=== PATIENT | female | born 1945 | race Caucasian/White ===

== ENCOUNTER 2016-06-27 13:54 | Emergency (ER) | payer MEDICARE, OTHER ==
--- NOTE | 2016-06-27 14:45 | DIAGNOSTIC IMAGING REPORT ---
PROCEDURE: CT HEAD WITHOUT CONTRAST INDICATION: WEAKNESS TECHNIQUE: Noncontrast axial images with sagittal and coronal reformations. COMPARISON: None. FINDINGS: Sulci and ventricular system are normal. Mild of white matter chronic ischemic changes and tiny bilateral basal ganglia lacunar infarcts versus prominent perivascular spaces. No evidence of acute intracranial process. Visualized mastoids and sinuses are clear. IMPRESSION: 1. No acute intracranial abnormality 2. Mild white matter chronic ischemic changes with tiny bilateral basal ganglia lacunar infarct versus prominent perivascular spaces 3. Findings discussed with Dr. Gutiérrez at 02:43 p.m.[facility] Standard Time
--- NOTE | 2016-06-27 15:23 | DIAGNOSTIC IMAGING REPORT ---
PROCEDURE: XR CERVICAL SPINE 2 OR 3 VIEW INDICATION: UPPER EXTREMITY WEAKNESS TECHNIQUE: Three views. COMPARISON: None. FINDINGS: Normal alignment without fracture. Anterior C6-7 surgical fusion with complete bony fusion. Large spurs at C4-5 and C5-6. Osteopenia. Odontoid , lateral masses of C1 prevertebral soft tissues are normal. Soft tissue calcification between the C6 and C7 spinous processes suggestive of old soft tissue injury. IMPRESSION: 1. No acute changes 2. C6-7 surgical fusion 3. Degenerative changes
--- NOTE | 2016-06-27 15:24 | DIAGNOSTIC IMAGING REPORT ---
PROCEDURE: XR CHEST 1 VIEW INDICATION: R ARM WEAKNESS TECHNIQUE: Portable AP view 02:54 p.m. COMPARISON: None. FINDINGS: Lungs are clear. Heart and mediastinum are normal. Lower cervical spine surgical fusion. IMPRESSION: 1. No acute changes.
--- NOTE | 2016-06-27 17:31 | ED ORDER SUMMARY ---
..... Patient: JORGE KEARNS OrderSheet [facility] VisitID: [id number] [address] [place] [address] 71y, F Registration Date/Time: 06/27/2016 ORDER SHEET Weight: 70.3 kg (stated) Allergies: Ciprofloxacin, Metformin, NIFEdipine, Sulfa Antibiotics, Timolol GENERAL ORDERS: Chest 1V Urgent (14:15 06/27/2016 Josh FENTON) (Ack 14:24 LTapper) (15:35 DDean R.N.) CT Head wo Cont Urgent (14:15 06/27/2016 Josh FENTON) (Ack 14:24 LTapper) (15:35 DDean R.N.) Contact Center Specialist (Continuous) (14:16 06/27/2016 Josh FENTON) (14:22 DDean R.N.) Cervical Spine 2 or 3V Urgent (14:16 06/27/2016 Josh FENTON) (Ack 14:24 LTapper) (15:35 DDean R.N.) CBC w Diff Urgent (14:16 06/27/2016 Josh FENTON) (Ack 14:24 LTapper) (15:59 DDean R.N.) CMP Urgent (14:16 06/27/2016 Josh FENTON) (Ack 14:24 LTapper) (15:59 DDean R.N.) UA-Culture if indicated Urgent (14:16 06/27/2016 Josh FENTON) (Ack 14:24 LTapper) (16:26 DDean R.N.) PT with INR Urgent (14:16 06/27/2016 Josh FENTON) (Ack 14:24 LTapper) (15:59 DDean R.N.) PTT Urgent (14:16 06/27/2016 Josh FENTON) (Ack 14:24 LTapper) (15:59 DDean R.N.) Amylase Urgent (14:16 06/27/2016 Josh FENTON) (Ack 14:24 LTapper) (15:59 DDean R.N.) Lipase Urgent (14:16 06/27/2016 Josh FENTON) (Ack 14:24 LTapper) (15:59 DDean R.N.) CPK Urgent (14:16 06/27/2016 Josh FENTON) (Ack 14:24 LTapper) (15:59 DDean R.N.) Troponin-I Urgent (14:16 06/27/2016 Josh FENTON) (Ack 14:24 LTapper) (15:59 DDean R.N.) Oxygen (2 L/min) (NC) (14:16 06/27/2016 Josh FENTON) (14:22 DDean R.N.) Pulse oximeter (14:16 06/27/2016 Josh FENTON) (14:22 DDean R.N.) EKG - ER Stat (14:16 06/27/2016 Josh FENTON) (Ack 14:29 LTapper) (15:28 RKaruga) MEDICATION ORDERS: Aspirin PO 325 mg (NOW) (15:59 06/27/2016 Josh FENTON) (16:07 DDean R.N.) IV FLUIDS: IV Saline Lock (14:16 06/27/2016 Josh FENTON) (14:23 DDean R.N.) ORDER SHEET NOTES: [Electronically signed by Danuta Lyn R.N. (23:06 06/27/2016)] [Electronically signed by Tito Gutiérrez MD (22:33 06/29/2016)] [Electronically locked/signed by Danuta Lyn R.N. (23:06 06/27/2016)]
--- NOTE | 2016-06-27 17:31 | ED ORDER SUMMARY ---
..... Patient: JORGE KEARNS OrderSheet [facility] VisitID: [id number] [address] [place] [address] 71y, F Registration Date/Time: 06/27/2016 ORDER SHEET Weight: 70.3 kg (stated) Allergies: Ciprofloxacin, Metformin, NIFEdipine, Sulfa Antibiotics, Timolol GENERAL ORDERS: Chest 1V Urgent (14:15 06/27/2016 Josh FENTON) (Ack 14:24 LTapper) (15:35 DDean R.N.) CT Head wo Cont Urgent (14:15 06/27/2016 Josh FENTON) (Ack 14:24 LTapper) (15:35 DDean R.N.) Biometrics Specialist (Continuous) (14:16 06/27/2016 Josh FENTON) (14:22 DDean R.N.) Cervical Spine 2 or 3V Urgent (14:16 06/27/2016 Josh FENTON) (Ack 14:24 LTapper) (15:35 DDean R.N.) CBC w Diff Urgent (14:16 06/27/2016 Josh FENTON) (Ack 14:24 LTapper) (15:59 DDean R.N.) CMP Urgent (14:16 06/27/2016 Josh FENTON) (Ack 14:24 LTapper) (15:59 DDean R.N.) UA-Culture if indicated Urgent (14:16 06/27/2016 Josh FENTON) (Ack 14:24 LTapper) (16:26 DDean R.N.) PT with INR Urgent (14:16 06/27/2016 Josh FENTON) (Ack 14:24 LTapper) (15:59 DDean R.N.) PTT Urgent (14:16 06/27/2016 Josh FENTON) (Ack 14:24 LTapper) (15:59 DDean R.N.) Amylase Urgent (14:16 06/27/2016 Josh FENTON) (Ack 14:24 LTapper) (15:59 DDean R.N.) Lipase Urgent (14:16 06/27/2016 Josh FENTON) (Ack 14:24 LTapper) (15:59 DDean R.N.) CPK Urgent (14:16 06/27/2016 Josh FENTON) (Ack 14:24 LTapper) (15:59 DDean R.N.) Troponin-I Urgent (14:16 06/27/2016 Josh FENTON) (Ack 14:24 LTapper) (15:59 DDean R.N.) Oxygen (2 L/min) (NC) (14:16 06/27/2016 Josh FENTON) (14:22 DDean R.N.) Pulse oximeter (14:16 06/27/2016 Josh FENTON) (14:22 DDean R.N.) EKG - ER Stat (14:16 06/27/2016 Josh FENTON) (Ack 14:29 LTapper) (15:28 RKaruga) MEDICATION ORDERS: Aspirin PO 325 mg (NOW) (15:59 06/27/2016 Josh FENTON) (16:07 DDean R.N.) IV FLUIDS: IV Saline Lock (14:16 06/27/2016 Josh FENTON) (14:23 DDean R.N.) ORDER SHEET NOTES: [Electronically signed by Danuta Lyn R.N. (23:06 06/27/2016)] [Electronically signed by Tito Gutiérrez MD (22:33 06/29/2016)] [Electronically locked/signed by Danuta Lyn R.N. (23:06 06/27/2016)]
--- NOTE | 2016-06-27 17:31 | ED NURSING NOTES ---
Clinical Report - Nurses [facility] [address] [place] [address] 06/27/2016 13:57 Patient: JORGE KEARNS TRIAGE Triage time 1400. Acuity: LEVEL 3. Chief Complaint: NUMBNESS and (numbness and heaviness on rt arm from elbow down. has had multiple TIA's since February. there is right arm drift and weakness, but she states she has "had trouble with that arm since february"). JAVIER COMA SCORE: Bouse Coma Scale: 15- eyes open spontaneously (4); best verbal response- oriented x 4 (5); best motor response- obeys commands (6). --14:18 Danuta Lyn R.N. 14:00 06/27/16. BP: 131/80. HR: 74. RR: 20. O2 saturation: 98% on room air. Temp: 98.3 F. Pain level now: 0/10. --14:18 Danuta Lyn R.N. Weight: 70.3 kg stated. Height/Length: 66 inches Per Patient. BMI: 25. --14:06 Danuta Lyn R.N. Medications Nystatin 975428gjyui/gm powder BID . --14:41 Danuta Lyn R.N. Calcium + D Oral 1 daily. Carvedilol Oral (Tablet 12.5 mg) 1 tablet, BID. Clopidogrel Bisulfate Oral 75 mg, daily. Gabapentin Oral 300 mg, 2 in am, 1 in afternoon, 2 at HS . HydrALAZINE HCl Oral (Tablet 25 mg) 1 tablet, HS. Hydrochlorothiazide Oral 25 mg, daily. Lantus SoloStar Subcutaneous 45 units daily . Lipitor Oral 20 mg, daily. Losartan Potassium Oral 100 mg, daily. Multivitamin Oral 1 tab daily . OxyCODONE HCl Oral 5 mg, 4x a day as needed. PARoxetine HCl Oral (Tablet 40 mg) 1 tablet, daily. Potassimin Oral 10mEq 1 daily . Tolterodine Tartrate ER Oral 4mg tab daily . --14:43 Danuta Lyn R.N. Allergies Ciprofloxacin. (N/V) Metformin. NIFEdipine. Sulfa Antibiotics. (GI upset) Timolol. --14:35 Danuta Lyn R.N. History Arrived by EMS. Historian: patient. Unaccompanied. Primary physician (richy griffin). This started 2229 last night. No alteration in mental status, headache, impaired speech or trouble walking or swallowing. No dizziness. PAST MEDICAL HX: Diabetes mellitus. Hypertension. SURGERY HX: Back surgery. (had cement placed around L1 "so it wouldnt rub against the others"). Neck surgery. (cervical surgery 2 years). SOCIAL HX: Occasional alcohol use. --14:18 Danuta Lyn R.N. PROBLEMS: Right leg droop . --14:16 Danuta Lyn R.N. TIA - Transient Ischemic Attack [RuleOut]. --17:29 Tito Gutiérrez MD The following entry was modified by Tito Gutiérrez MD, 17:29 <<STRICKEN ENTRY-- TIA - Transient Ischemic Attack. --14:15 Danuta Lyn R.N. --END STRIKE>>. ADDITIONAL SURGERIES: Hysterectomy. Right elbow growth . --14:16 Danuta Lyn R.N. Interventions ID band on patient. To treatment room. --14:18 Danuta Lyn R.N. PHYSICAL ASSESSMENT 14:00. To room via stretcher. Patient gowned. GENERAL / NEURO / PSYCH: Awake. Oriented X 4. Alert. Appears in no acute distress. Bouse Coma Scale: 15- eyes open spontaneously (4); best verbal response- oriented x 4 (5); best motor response- obeys commands (6). Speech normal. Mood/affect normal. Strength is unequal; left employee communications specialist is greater than the right employee communications specialist and left foot push/pull is greater than the right foot push/pull. The patient has had weakness. Sensory deficit present. (c/o rt arm numbness from elbow down). HEENT: No facial asymmetry noted. RESPIRATORY: Respirations not labored. CVS: Capillary refill less than 2 seconds. SKIN: Skin is warm and dry. --14:21 Danuta Lyn R.N. NURSING PROGRESS NOTES 14:00. campus monitor placed on patient; (NSR). Patient gowned. Head of bed elevated. Reassurance given. Patient identifiers checked. Call light placed in reach. Side rails up. Bed placed in lowest position. Patient ready for evaluation- chart flagged. --14:19 Danuta Lyn R.N. 13:40 06/27/2016 Site #1 started prior to arrival by EMS via IV in the left hand with an 20g angiocath, with aseptic technique and good blood return; one attempt. --14:23 Danuta Lyn R.N. 14:27 06/27/16. Patient transported to CT by stretcher with tech. --14:27 Danuta Lyn R.N. 15:00. Patient returned from radiology and CT. --15:23 Danuta Lyn R.N. 15:00 06/27/16. BP: 118/103. HR: 79. RR: 18. O2 saturation: 99%. Temp: deferred. Pain level now: 0/10. --15:26 Danuta Lyn R.N. EKG time: (15:25). EKG was performed by a tech and shown to the ED physician. --15:27 Claudia Holden 15:25. Patient ID band checked for patient name and birthdate: patient confirmed. Blood samples drawn by lab per protocol ; labeled in presence of the patient and sent to lab: [facility]. --15:35 Danuta Lyn R.N. JAVIER COMA SCORE: Javier Coma Scale: 15- eyes open spontaneously (4); best verbal response- oriented x 4 (5); best motor response- obeys commands (6). --16:04 Danuta Lyn R.N. 16:03 06/27/16. BP: 144/83. HR: 71. RR: 18. O2 saturation: 100% on nasal cannula at 2 liters/minute. Temp: deferred. Pain level now: 0/10. --16:04 Danuta Lyn R.N. 16:05 06/27/2016 Aspirin PO Tablets 324 mg given. Allergies verified and confirmed 5 rights. --16:07 Danuta Lyn R.N. 16:15. 10 fr in/out catheterization. During procedure hand hygiene observed and sterile equipment and aseptic technique used. Return of less than 50 mL yellow-colored cloudy urine. She tolerated procedure well. --16:28 Danuta Lyn R.N. 16:45 06/27/16. BP: 140/75. HR: 75. RR: 18. O2 saturation: 100%. Temp: deferred. Pain level now: 0/10. Additional comments: Pt talking with friend, drinking sprite, pt in no acute distress. --16:58 Danuta Lyn R.N. ( Pt's food set at bedside. Diabetic diet was ordered). --17:26 Claudia Holden 17:50 06/27/16. BP: 190/74. HR: 77. RR: 18. O2 saturation: 99% on nasal cannula at 2 liters/minute. Temp: deferred. Pain level now: 0/10. --17:51 Danuta Lyn R.N. 17:48 06/27/2016 Site #1 removed upon discharge. Bandaid applied. --17:53 Danuta Lyn R.N. 17:49 06/27/2016 IV Saline Lock Drip IV Discontinued: bag #1 STOPPED upon discharge. Total amount infused: 0 mL. IV patency established. IV site checked: no pain, redness, or swelling. IV flushed thoroughly. --17:54 Danuta Lyn R.N. DISPOSITION / DISCHARGE 17:53 06/27/16. Condition at departure: unchanged and stable. No learning barriers present. Discharge instructions provided and reviewed with the patient. Reviewed medication(s) (add 325 mg ASA). Patient verbalized understanding. Written instructions provided in Hungarian. The patient was discharged home and accompanied by sterile tech. She left the Emergency Department in a wheelchair and via private vehicle. Staking Press Operator driving. JAVIER COMA SCORE: Javier Coma Scale: 15- eyes open spontaneously (4); best verbal response- oriented x 4 (5); best motor response- obeys commands (6). --17:53 Danuta Lyn R.N. 17:51 06/27/16. BP: 190/74. HR: 78. RR: 18. O2 saturation: 99% on nasal cannula at 2 liters/minute. Temp: deferred. Pain level now: 0/10. --17:53 Danuta Lyn R.N. Locked/Released at 06/27/2016 23:06 by Danuta Lyn R.N.
--- NOTE | 2016-06-27 17:31 | ED CLINICAL REPORT ---
Clinical Report - Physicians/Mid Levels [facility] [address] [place] [address] 06/27/2016 13:57 Patient: JORGE KEARNS Time Seen: 14:14. Arrived- By ambulance. Historian- patient and EMS personnel. HISTORY OF PRESENT ILLNESS Chief Complaint: WEAKNESS. The patient has had weakness of the right arm (moderate) and right hand (moderate). She has had numbness of the right arm (moderate) and right hand (moderate). She has had tingling of the right arm (moderate) and right hand (moderate). No impaired speech or swallowing or visual disturbance. She has had difficulty walking (chronically - she attributes this to prior stroke). This started last night and is still present. It was abrupt in onset and has been constant. At its maximum deficit described as moderate. When seen in the E.D., it was almost gone. No dizziness. Usually is alert and oriented X3. (she uses a RLE brace). She usually uses a wheelchair. (She says that she has had chronic problems with weakness, numbness and tingling in the right arm as well as her right leg. However, last night and this morning this felt much worse. She says that she is back to her baseline now.). Similar symptoms previously: Chronically. REVIEW OF SYSTEMS No chills, fever, sweats, calf pain or chest pain. No cough, difficulty breathing, pedal edema, palpitations or abdominal pain. No constipation, diarrhea, nausea, vomiting or urinary problems. No neck pain. All systems otherwise negative, except as recorded above. PAST HISTORY ( PCP - [facility]). Problems: Diabetes Mellitus. Hypertension. SOCIAL HISTORY Never smoker. Occasional alcohol use. No drug use. Residence: On the waiting list for an assisted living facility Is a local resident. Resides in an apartment. She lives alone. FAMILY HISTORY Cancer in first-degree relative (mother and sibling) and grandparent. ADDITIONAL NOTES The nursing notes have been reviewed. PHYSICAL EXAM Vital Signs: 06/27/2016 14:00 BP: 131/80. HR: 74. RR: 20. O2 saturation: 98%. Temp: 98.3 F. Pain level now: 0/10. Have been reviewed. Appearance: Alert. No acute distress. Eyes: Pupils equal, round and reactive to light. ENT: Normal ENT inspection. Airway intact. Pharynx normal. Neck: Normal inspection. Neck supple. No carotid bruit. CVS: Normal heart rate and rhythm. Heart sounds normal. Respiratory: No respiratory distress. Breath sounds normal. Abdomen: Soft and nontender. No organomegaly. Obese. Back: Normal inspection. Skin: Skin warm and dry. Normal skin color. No rash. Normal skin turgor. Extremities: Extremities exhibit normal ROM. No calf tenderness. No lower extremity edema. Neuro: Alert. Oriented X 3. Mood/affect normal. Speech normal. Cranial nerves normal (as tested). No cerebellar findings. No motor deficit. No sensory deficit. No pronator drift. (mild RUE tremulousness). LABS, X-RAYS, AND EKG EKG: No acute process. Rate: 72. Prior EKG unavailable. The study has been independently viewed by me. C-Spine X-rays: (IMPRESSION: 1. No acute changes 2. C6-7 surgical fusion 3. Degenerative changes). The X-rays were interpreted by the radiologist and contemporaneously by me. Chest X-ray: No acute disease. The X-rays were interpreted by the radiologist and contemporaneously by me. CT Head: (IMPRESSION: 1. No acute intracranial abnormality 2. Mild white matter chronic ischemic changes with tiny bilateral basal ganglia lacunar infarct versus prominent perivascular spaces). The study was interpreted by the radiologist and contemporaneously by me. Laboratory Tests: CBC w Diff: (MELIA: 06/27/2016 15:30) ( MsgRcvd 06/27/2016 15:43) Final results Test Result Flag Units (Reference) WHITE BLOOD COUNT 7.4 K/uL (4.5-11.5) RED BLOOD COUNT 4.53 M/uL (4.00-5.20) HEMOGLOBIN 12.6 gm/dL (12.0-16.0) HEMATOCRIT 37.7 % (36.0-46.0) MEAN CELL VOLUME 83 fL (80-100) MEAN CORPUSCULAR HGB 28 pg (26-34) MEAN CORPUSCULAR HGB CONC 34 g/dL (31-37) RED CELL DISTRIBUTION WIDTH 14.4 % (11.6-14.8) PLATELET COUNT 200 K/uL (150-400) NEUTROPHIL % 65.2 % (50-75) LYMPH % 26.3 % (25-40) MONO % 4.6 % (3-14) EOSINOPHIL % 3.5 % (0-4) BASOPHIL % 0.4 % (0-2) PT with INR: (MELIA: 06/27/2016 15:30) ( [facility] 06/27/2016 15:47) Final results Test Result Flag Units (Reference) INR 1.1 (0.8-1.2) Low Intensity Therapy: INR 1.5-2.0 PT range 18.5-23.1Mod.Intensity Therapy: INR 2.0-3.0 PT range 23.1-31.5High Intensity Therapy: INR 2.5-3.5 PT range 27.4-35.5High Intensity Therapy 2: INR 3.0-4.0 PT range 31.5-39.3 APTT 31 SECONDS (24-34) CMP: (MELIA: 06/27/2016 15:30) ( [facility] 06/27/2016 15:56) Final results Test Result Flag Units (Reference) GLUCOSE 54 L mg/dL (70-110) BUN 32 H mg/dL (7-18) CREATININE 1.4 H mg/dL (0.6-1.3) Estimated GFR 39.63 mL/min Estimated GFR- 48.03 mL/min Note: Persistent reduction over 3 months in eGFR<60 mL/min/1.73 m2 defines CKD. Patients with eGFR values>=60 mL/min/1.73 m2 may also have CKD if evidence ofpersistent proteinuria. Additional information may be foundat www.kidney.org. SODIUM 138 mmol/L (136-145) POTASSIUM 3.3 L mmol/L (3.5-5.1) CHLORIDE 103 mmol/L (98-107) CARBON DIOXIDE 27 mmol/L (21-32) CALCIUM 9.1 mg/dL (8.5-10.1) TOTAL PROTEIN 6.6 g/dL (6.4-8.2) ALBUMIN 3.2 L g/dL (3.3-5.0) BILIRUBIN, TOTAL 1.0 mg/dL (0.0-1.0) ALKALINE PHOSPHATASE 103 U/L (46-116) AST (SGOT) 17 U/L (15-37) ALT (SGPT) 26 U/L (12-78) LIPASE 69 L U/L (73-393) AMYLASE 24 L U/L (25-115) CPK 82 U/L (24-260) TROPONIN I <0.05 ng/mL (0.00-1.5) TROPONIN REFERENCE RANGE:<0.1 NEGATIVE0.1-1.5 INDETERMINANT>1.5 POSITIVE . PROGRESS AND PROCEDURES Patient/family counseled. Old medical records ordered. Old records unavailable. Disposition: Discharged. Condition: stable. CLINICAL IMPRESSION Paresthesia Possible transient ischemic attack. INSTRUCTIONS Warnings: Further evaluation is necessary. GENERAL WARNINGS: Return or contact your physician immediately if your condition worsens or changes unexpectedly, if not improving as expected, or if other problems arise. Your Current Medications: CONTINUE TAKING THE FOLLOWING MEDICATIONS: Calcium + D Oral : 1 daily. Carvedilol Oral : Tablet 12.5 mg, 1 tablet BID. Clopidogrel Bisulfate Oral : 75 mg daily. Gabapentin Oral : 300 mg 2 in am, 1 in afternoon, 2 at HS. HydrALAZINE HCl Oral : Tablet 25 mg, 1 tablet HS. Hydrochlorothiazide Oral : 25 mg daily. Lantus SoloStar Subcutaneous : 45 units daily. Lipitor Oral : 20 mg daily. Losartan Potassium Oral : 100 mg daily. Multivitamin Oral : 1 tab daily. Nystatin [id number]/gm powder BID *. OxyCODONE HCl Oral : 5 mg 4x a day, prn. PARoxetine HCl Oral : Tablet 40 mg, 1 tablet daily. Potassimin Oral : 10mEq 1 daily. Tolterodine Tartrate ER Oral : 4mg tab daily. OTC Medications: Aspirin 325 mg (available over the counter): take 1 orally every 24 hours. Dispense thirty (30). No refills. Follow-up: Follow up with your doctor Thursday in three days. Call for an appointment. Follow up with a neurologist- as recommended by your primary care physician. Understanding of the discharge instructions verbalized by patient. (Electronically signed by Tito Gutiérrez MD 06/29/2016 22:33)
--- NOTE | 2016-06-27 17:31 | ED NURSING NOTES ---
Clinical Report - Nurses [facility] [address] [place] [address] 06/27/2016 13:57 Patient: JORGE KEARNS TRIAGE Triage time 1400. Acuity: LEVEL 3. Chief Complaint: NUMBNESS and (numbness and heaviness on rt arm from elbow down. has had multiple TIA's since February. there is right arm drift and weakness, but she states she has "had trouble with that arm since february"). JAVIER COMA SCORE: [place] Coma Scale: 15- eyes open spontaneously (4); best verbal response- oriented x 4 (5); best motor response- obeys commands (6). --14:18 Danuta Lyn R.N. 14:00 06/27/16. BP: 131/80. HR: 74. RR: 20. O2 saturation: 98% on room air. Temp: 98.3 F. Pain level now: 0/10. --14:18 Danuta Lyn R.N. Weight: 70.3 kg stated. Height/Length: 66 inches Per Patient. BMI: 25. --14:06 Danuta Lyn R.N. Medications Nystatin [id number]/gm powder BID . --14:41 Danuta Lyn R.N. Calcium + D Oral 1 daily. Carvedilol Oral (Tablet 12.5 mg) 1 tablet, BID. Clopidogrel Bisulfate Oral 75 mg, daily. Gabapentin Oral 300 mg, 2 in am, 1 in afternoon, 2 at HS . HydrALAZINE HCl Oral (Tablet 25 mg) 1 tablet, HS. Hydrochlorothiazide Oral 25 mg, daily. Lantus SoloStar Subcutaneous 45 units daily . Lipitor Oral 20 mg, daily. Losartan Potassium Oral 100 mg, daily. Multivitamin Oral 1 tab daily . OxyCODONE HCl Oral 5 mg, 4x a day as needed. PARoxetine HCl Oral (Tablet 40 mg) 1 tablet, daily. Potassimin Oral 10mEq 1 daily . Tolterodine Tartrate ER Oral 4mg tab daily . --14:43 Danuta Lyn R.N. Allergies Ciprofloxacin. (N/V) Metformin. NIFEdipine. Sulfa Antibiotics. (GI upset) Timolol. --14:35 Danuta Lyn R.N. History Arrived by EMS. Historian: patient. Unaccompanied. Primary physician (richy griffin). This started 2229 last night. No alteration in mental status, headache, impaired speech or trouble walking or swallowing. No dizziness. PAST MEDICAL HX: Diabetes mellitus. Hypertension. SURGERY HX: Back surgery. (had cement placed around L1 "so it wouldnt rub against the others"). Neck surgery. (cervical surgery 2 years). SOCIAL HX: Occasional alcohol use. --14:18 Danuta Lyn R.N. PROBLEMS: Right leg droop . --14:16 Danuta Lyn R.N. TIA - Transient Ischemic Attack [RuleOut]. --17:29 Tito Gutiérrez MD The following entry was modified by Tito Gutiérrez MD, 17:29 <<STRICKEN ENTRY-- TIA - Transient Ischemic Attack. --14:15 Danuta Lyn R.N. --END STRIKE>>. ADDITIONAL SURGERIES: Hysterectomy. Right elbow growth . --14:16 Danuta Lyn R.N. Interventions ID band on patient. To treatment room. --14:18 Danuta Lyn R.N. PHYSICAL ASSESSMENT 14:00. To room via stretcher. Patient gowned. GENERAL / NEURO / PSYCH: Awake. Oriented X 4. Alert. Appears in no acute distress. [place] Coma Scale: 15- eyes open spontaneously (4); best verbal response- oriented x 4 (5); best motor response- obeys commands (6). Speech normal. Mood/affect normal. Strength is unequal; left supervisor scrap preparation is greater than the right supervisor scrap preparation and left foot push/pull is greater than the right foot push/pull. The patient has had weakness. Sensory deficit present. (c/o rt arm numbness from elbow down). HEENT: No facial asymmetry noted. RESPIRATORY: Respirations not labored. CVS: Capillary refill less than 2 seconds. SKIN: Skin is warm and dry. --14:21 Danuta Lyn R.N. NURSING PROGRESS NOTES 14:00. fixture designer placed on patient; (NSR). Patient gowned. Head of bed elevated. Reassurance given. Patient identifiers checked. Call light placed in reach. Side rails up. Bed placed in lowest position. Patient ready for evaluation- chart flagged. --14:19 Danuta Lyn R.N. 13:40 06/27/2016 Site #1 started prior to arrival by EMS via IV in the left hand with an 20g angiocath, with aseptic technique and good blood return; one attempt. --14:23 Danuta Lyn R.N. 14:27 06/27/16. Patient transported to CT by stretcher with tech. --14:27 Danuta Lyn R.N. 15:00. Patient returned from radiology and CT. --15:23 Danuta Lyn R.N. 15:00 06/27/16. BP: 118/103. HR: 79. RR: 18. O2 saturation: 99%. Temp: deferred. Pain level now: 0/10. --15:26 Danuta Lyn R.N. EKG time: (15:25). EKG was performed by a tech and shown to the ED physician. --15:27 Claudia Holden 15:25. Patient ID band checked for patient name and birthdate: patient confirmed. Blood samples drawn by lab per protocol ; labeled in presence of the patient and sent to lab: [facility]. --15:35 Danuta Lyn R.N. JAVIER COMA SCORE: Javier Coma Scale: 15- eyes open spontaneously (4); best verbal response- oriented x 4 (5); best motor response- obeys commands (6). --16:04 Danuta Lyn R.N. 16:03 06/27/16. BP: 144/83. HR: 71. RR: 18. O2 saturation: 100% on nasal cannula at 2 liters/minute. Temp: deferred. Pain level now: 0/10. --16:04 Danuta Lyn R.N. 16:05 06/27/2016 Aspirin PO Tablets 324 mg given. Allergies verified and confirmed 5 rights. --16:07 Danuta Lyn R.N. 16:15. 10 fr in/out catheterization. During procedure hand hygiene observed and sterile equipment and aseptic technique used. Return of less than 50 mL yellow-colored cloudy urine. She tolerated procedure well. --16:28 Danuta Lyn R.N. 16:45 06/27/16. BP: 140/75. HR: 75. RR: 18. O2 saturation: 100%. Temp: deferred. Pain level now: 0/10. Additional comments: Pt talking with friend, drinking sprite, pt in no acute distress. --16:58 Danuta Lyn R.N. ( Pt's food set at bedside. Diabetic diet was ordered). --17:26 Claudia Holden 17:50 06/27/16. BP: 190/74. HR: 77. RR: 18. O2 saturation: 99% on nasal cannula at 2 liters/minute. Temp: deferred. Pain level now: 0/10. --17:51 Danuta Lyn R.N. 17:48 06/27/2016 Site #1 removed upon discharge. Bandaid applied. --17:53 Danuta Lyn R.N. 17:49 06/27/2016 IV Saline Lock Drip IV Discontinued: bag #1 STOPPED upon discharge. Total amount infused: 0 mL. IV patency established. IV site checked: no pain, redness, or swelling. IV flushed thoroughly. --17:54 Danuta Lyn R.N. DISPOSITION / DISCHARGE 17:53 06/27/16. Condition at departure: unchanged and stable. No learning barriers present. Discharge instructions provided and reviewed with the patient. Reviewed medication(s) (add 325 mg ASA). Patient verbalized understanding. Written instructions provided in Icelandic. The patient was discharged home and accompanied by twister hand. She left the Emergency Department in a wheelchair and via private vehicle. Web Applications Programmer driving. JAVIER COMA SCORE: Javier Coma Scale: 15- eyes open spontaneously (4); best verbal response- oriented x 4 (5); best motor response- obeys commands (6). --17:53 Danuta Lyn R.N. 17:51 06/27/16. BP: 190/74. HR: 78. RR: 18. O2 saturation: 99% on nasal cannula at 2 liters/minute. Temp: deferred. Pain level now: 0/10. --17:53 Danuta Lyn R.N. Locked/Released at 06/27/2016 23:06 by Danuta Lyn R.N.
--- NOTE | 2016-06-29 22:33 | ED DISCHARGE INSTRUCTIONS ---
Patient: JORGE KEARNS General Instructions [facility] VisitID: [id number] [place] [address] 71y, F Registration Date/Time: 06/27/2016 Paresthesia INSTRUCTIONS Warnings: Further evaluation is necessary. GENERAL WARNINGS: Return or contact your physician immediately if your condition worsens or changes unexpectedly, if not improving as expected, or if other problems arise. Your Current Medications: CONTINUE TAKING THE FOLLOWING MEDICATIONS: Calcium + D Oral : 1 daily. Carvedilol Oral : Tablet 12.5 mg, 1 tablet BID. Clopidogrel Bisulfate Oral : 75 mg daily. Gabapentin Oral : 300 mg 2 in am, 1 in afternoon, 2 at HS. HydrALAZINE HCl Oral : Tablet 25 mg, 1 tablet HS. Hydrochlorothiazide Oral : 25 mg daily. Lantus SoloStar Subcutaneous : 45 units daily. Lipitor Oral : 20 mg daily. Losartan Potassium Oral : 100 mg daily. Multivitamin Oral : 1 tab daily. Nystatin 319094ipluy/gm powder BID *. OxyCODONE HCl Oral : 5 mg 4x a day, prn. PARoxetine HCl Oral : Tablet 40 mg, 1 tablet daily. Potassimin Oral : 10mEq 1 daily. Tolterodine Tartrate ER Oral : 4mg tab daily. OTC Medications: Aspirin 325 mg (available over the counter): take 1 orally every 24 hours. Dispense thirty (30). No refills. Follow-up: Follow up with your doctor Thursday in three days. Call for an appointment. Follow up with a neurologist- as recommended by your primary care physician. Understanding of the discharge instructions verbalized by patient. ADDITIONAL INFORMATION Paraesthesias Paraesthesia refers to a burning or prickling sensation that is sometimes felt in the hands, arms, legs or feet. It can also occur in other parts of the body. It can also feel like tingling or numbness, skin crawling or itching.The sensation is usually painless. Most people have experienced pins and needles. This feeling happens when legs have been crossed for too long and pressure is placed on a nerve. This is a temporary paraesthesia. It quickly goes away once the pressure is relieved. There are many possible causes for chronic paraesthesias. These include such disorders as stroke, herniated disk (pressing on a nerve), trapped nerve in the shoulder, elbow or wrist (such as carpal tunnel syndrome), vitamin deficiencies or even certain medicines. Laboratory tests are needed to make an accurate diagnosis. These tests may include blood tests, X-ray, CT (computerized tomography) scan or a muscle test (electromyography).Depending on the cause, treatment may include physical therapy. Home Care: Do not make any changes to your medicines without advice from your doctor. If vitamins have been prescribed, remember to take them daily at the recommended dose. Because of a decrease in feeling, a numb hand or foot may be more prone to injury. Take care to protect these areas from cuts, bumps, bruises, escudero or other injury. Keep your nails trimmed and wash your hands and feet often. Wear shoes that fit well to avoid pressure points, blisters and ulcers. Look at your hands and feet carefully (including the soles of your feet and between your toes) at least once a week and notify your doctor of any open wounds or signs of infection. Follow Up with your doctor or as advised by our staff. You may need further testing to determine the exact cause of your paraesthesia. [NOTE: If blood tests, X-ray, CT scan or electromyography were done, specialists will review them. You will be notified of any new findings that may affect your care.] Get Prompt Medical Attention if any of the following occur: Numbness or weakness of the face, one arm or one leg Slurred speech, confusion, trouble speaking, walking or seeing Severe headache, fainting spell, dizziness or seizure Chest, arm, neck or upper back pain Loss of bladder or bowel control Open wound with redness, swelling or pus TIA: Transient Ischemic Attack The spell you had today is called a TIA (mini-stroke). It is caused by a temporary decrease or blockage of blood flow to a part of your brain. A TIA often happens when a blood clot travels to a blood vessel in the brain. The clot reduces or blocks blood flow, resulting in the symptoms you had. After a short while, the clot dissolves, blood flows again, and the symptoms disappear. Persons with atherosclerosis (hardening of the arteries) or atrial fibrillation (a type of irregular heartbeat) are at higher risk of TIA. TIA causes temporary symptoms similar to a stroke, but lasts less than 24 hours. A full stroke causes symptoms that last more than 24 hours and may be permanent. Once you have had a TIA, you are at risk of having a full stroke. Therefore, be sure to follow up with your doctor for further evaluation. This may include an ultrasound of the arteries in your neck and an evaluation of your heart. If problems are found, your doctor will recommend treatment with medications and/or procedures. Medications to reduce your chance of having another TIA (and stroke) include those that prevent blood clots, such as antiplatelet medicines and anticoagulant medicines. Home care The following guidelines will help you take care of yourself at home: If all of your symptoms have resolved, there is nothing special that you need to do today. Rest at home and avoid exertion for the rest of the day. If your doctor has prescribed antiplatelet medication, take it as directed. Other ways to reduce your risk of a stroke Hypertension, diabetes, elevated cholesterol, and smoking are risk factors for stroke and heart disease. These can be controlled through medications, diet and lifestyle changes. Taking daily aspirin (or similar medications) is a simple but important part of preventing stroke. Follow-up care Call your doctor for an appointment in the next few days for another evaluation. Additional tests may be needed. If you had an X-ray, CT scan, MRI scan, or ECG (electrocardiogram), it will be reviewed by a specialist. Youll be notified of any new findings that will affect your care. When to call 911 or emergency services Get immediate medical attention if any of the following occur: Any of your TIA symptoms return New problems with speech, vision, walking, or weakness or numbeness of the face or on one side of the body Severe headache, fainting spell, dizziness, or seizure Aspirin Oral tablet What is this medicine? ASPIRIN ( pir in) is a pain reliever. It is used to treat mild pain and fever. This medicine is also used as directed by a doctor to prevent and to treat heart attacks, to prevent strokes, and to treat arthritis or inflammation. How should I use this medicine? Take this medicine by mouth with a glass of water. Follow the directions on the package or prescription label. You can take this medicine with or without food. If it upsets your stomach, take it with food. Do not take your medicine more often than directed. Talk to your electronic equipment trades worker regarding the use of this medicine in children. While this drug may be prescribed for children as young as 12 years of age for selected conditions, precautions do apply. Children and teenagers should not use this medicine to treat chicken pox or flu symptoms unless directed by a doctor. Patients over 65 years old may have a stronger reaction and need a smaller dose. What side effects may I notice from receiving this medicine? Side effects that you should report to your doctor or health home care physical therapist as soon as possible: allergic reactions like skin rash, itching or hives, swelling of the face, lips, or tongue breathing problems changes in hearing, ringing in the ears confusion general ill feeling or flu-like symptoms pain on swallowing redness, blistering, peeling or loosening of the skin, including inside the mouth or nose signs and symptoms of bleeding such as bloody or black, tarry stools; red or dark-brown urine; spitting up blood or brown material that looks like coffee grounds; red spots on the skin; unusual bruising or bleeding from the eye, gums, or nose trouble passing urine or change in the amount of urine unusually weak or tired yellowing of the eyes or skin Side effects that usually do not require medical attention (report to your doctor or health home care physical therapist if they continue or are bothersome): diarrhea or constipation nausea, vomiting stomach gas, heartburn What may interact with this medicine? Do not take this medicine with any of the following medications: cidofovir ketorolac probenecid This medicine may also interact with the following medications: alcohol alendronate bismuth subsalicylate flavocoxid herbal supplements like feverfew, garlic, alina, ginkgo biloba, horse chestnut medicines for diabetes or glaucoma like acetazolamide, methazolamide medicines for gout medicines that treat or prevent blood clots like enoxaparin, heparin, ticlopidine, warfarin other aspirin and aspirin-like medicines NSAIDs, medicines for pain and inflammation, like ibuprofen or naproxen pemetrexed sulfinpyrazone varicella live vaccine What if I miss a dose? If you are taking this medicine on a regular schedule and miss a dose, take it as soon as you can. If it is almost time for your next dose, take only that dose. Do not take double or extra doses. Where should I keep my medicine? Keep out of the reach of children. Store at room temperature between 15 and 30 degrees C (59 and 86 degrees F). Protect from heat and moisture. Do not use this medicine if it has a strong vinegar smell. Throw away any unused medicine after the expiration date. What should I tell my health care provider before I take this medicine? They need to know if you have any of these conditions: anemia asthma bleeding problems child with chickenpox, the flu, or other viral infection diabetes gout if you frequently drink alcohol containing drinks kidney disease liver disease low level of vitamin K lupus smoke tobacco stomach ulcers or other problems an unusual or allergic reaction to aspirin, tartrazine dye, other medicines, dyes, or preservatives or trying to get breast-feeding What should I watch for while using this medicine? If you are treating yourself for pain, tell your doctor or health home care physical therapist if the pain lasts more than 10 days, if it gets worse, or if there is a new or different kind of pain. Tell your doctor if you see redness or swelling. Also, check with your doctor if you have a fever that lasts for more than 3 days. Only take this medicine to prevent heart attacks or blood clotting if prescribed by your doctor or health home care physical therapist. Do not take aspirin or aspirin-like medicines with this medicine. Too much aspirin can be dangerous. Always read the labels carefully. This medicine can irritate your stomach or cause bleeding problems. Do not smoke cigarettes or drink alcohol while taking this medicine. Do not lie down for 30 minutes after taking this medicine to prevent irritation to your throat. If you are scheduled for any medical or dental procedure, tell your healthcare provider that you are taking this medicine. You may need to stop taking this medicine before the procedure. You have been given the following additional information: Paraesthesias TIA: Transient Ischemic Attack Aspirin Oral tablet (Electronically signed by Tito Gutiérrez MD 06/29/2016 22:33)
--- NOTE | 2016-06-29 22:33 | ED MAR SUMMARY ---
..... Medication Administration Record [facility] [address] [place] [address] Patient: JORGE KEARNS Visit ID: [id number] 71y, F Weight: 70.3 kg Height/Length: 66 in BMI: 25 ALLERGIES: Ciprofloxacin, Sulfa Antibiotics, NIFEdipine, Metformin, Timolol Given 16:05 06/27/2016 Riki, Shane Tipton. Medication Administered: ASPIRIN [PO], Dose: 324 mg Tablets PO. Medication Ordered: Aspirin PO 325 mg (NOW).
--- NOTE | 2016-06-29 22:33 | ED MED RECONCILIATION SUMMARY ---
Patient: JORGE KEARNS Medication Reconciliation Report [facility] VisitID: [id number] [address] [place] [address] 71y, F Registration Date/Time: 06/27/2016 Weight: 70.3 kg Height/Length: 66 in. BMI: 25.0 ALLERGIES: Ciprofloxacin, Metformin, NIFEdipine, Sulfa Antibiotics, Timolol The patient's Home Medications are listed below: CONTINUE TAKING THE FOLLOWING MEDICATIONS: Calcium + D Oral 1 daily Carvedilol Oral (12.5 mg) 1 tablet, BID Clopidogrel Bisulfate Oral 75 mg, daily Gabapentin Oral 300 mg, 2 in am, 1 in afternoon, 2 at HS HydrALAZINE HCl Oral (25 mg) 1 tablet, HS Hydrochlorothiazide Oral 25 mg, daily Lantus SoloStar Subcutaneous 45 units daily Lipitor Oral 20 mg, daily Losartan Potassium Oral 100 mg, daily Multivitamin Oral 1 tab daily Nystatin 049262xlsqy/gm powder BID OxyCODONE HCl Oral 5 mg, 4x a day PARoxetine HCl Oral (40 mg) 1 tablet, daily Potassimin Oral 10mEq 1 daily Tolterodine Tartrate ER Oral 4mg tab daily The source(s) of the original Home Medication information: Not obtained. The following Medications were given to the patient in the Emergency Department: Aspirin [PO] PO 324 mg, administered: 06/27/2016 4:05:00 PM The following Medications were prescribed to the patient: Aspirin 325 mg (available over the counter): take 1 orally every 24 hours. Dispense thirty (30). No refills. -- Tito Gutiérrez MD
--- NOTE | 2016-06-29 22:33 | ED MED RECONCILIATION SUMMARY ---
Patient: JORGE KEARNS Medication Reconciliation Report [facility] VisitID: [id number] [address] [place] [address] 71y, F Registration Date/Time: 06/27/2016 Weight: 70.3 kg Height/Length: 66 in. BMI: 25.0 ALLERGIES: Ciprofloxacin, Metformin, NIFEdipine, Sulfa Antibiotics, Timolol The patient's Home Medications are listed below: CONTINUE TAKING THE FOLLOWING MEDICATIONS: Calcium + D Oral 1 daily Carvedilol Oral (12.5 mg) 1 tablet, BID Clopidogrel Bisulfate Oral 75 mg, daily Gabapentin Oral 300 mg, 2 in am, 1 in afternoon, 2 at HS HydrALAZINE HCl Oral (25 mg) 1 tablet, HS Hydrochlorothiazide Oral 25 mg, daily Lantus SoloStar Subcutaneous 45 units daily Lipitor Oral 20 mg, daily Losartan Potassium Oral 100 mg, daily Multivitamin Oral 1 tab daily Nystatin 326769iteft/gm powder BID OxyCODONE HCl Oral 5 mg, 4x a day PARoxetine HCl Oral (40 mg) 1 tablet, daily Potassimin Oral 10mEq 1 daily Tolterodine Tartrate ER Oral 4mg tab daily The source(s) of the original Home Medication information: Not obtained. The following Medications were given to the patient in the Emergency Department: Aspirin [PO] PO 324 mg, administered: 06/27/2016 4:05:00 PM The following Medications were prescribed to the patient: Aspirin 325 mg (available over the counter): take 1 orally every 24 hours. Dispense thirty (30). No refills. -- Tito Gutiérrez MD
--- NOTE | 2016-06-29 22:33 | ED MAR SUMMARY ---
..... Medication Administration Record [facility] [address] [place] [address] Patient: JORGE KEARNS Visit ID: [id number] 71y, F Weight: 70.3 kg Height/Length: 66 in BMI: 25 ALLERGIES: Ciprofloxacin, Sulfa Antibiotics, NIFEdipine, Metformin, Timolol Given 16:05 06/27/2016 Riki, Shane Tipton. Medication Administered: ASPIRIN [PO], Dose: 324 mg Tablets PO. Medication Ordered: Aspirin PO 325 mg (NOW).
== END 2016-06-27 17:58 | disposition home or self-care (01) ==
LOC: ED SRH 13:54
DX: R20.9 Unspecified disturbances of skin sensation (principal); R53.1 Weakness; I10 Essential (primary) hypertension; E11.9 Type 2 diabetes mellitus without complications; Z79.4 Long term (current) use of insulin; Z88.1 Allergy status to other antibiotic agents; Z88.2 Allergy status to sulfonamides; Z88.8 Allergy status to other drugs, medicaments and biological substances
CPT/HCPCS: 81460; 90004; 90074; 90100; 90148; 90469; 90616; 92235; 92530; 92610; 94001; 94060; 95059

== ENCOUNTER 2016-11-24 13:54 | Emergency (ER) | payer MEDICARE, OTHER ==
--- NOTE | 2016-11-24 14:39 | DIAGNOSTIC IMAGING REPORT ---
PROCEDURE: CT HEAD WITHOUT CONTRAST INDICATION: TRAUMA/INJURY TECHNIQUE: Axial CT images were acquired through the head. Coronal and sagittal reformations were created. COMPARISON: Head CT 06/27/2016 FINDINGS: Sulci and ventricular system are normal. Mild of white matter chronic ischemic changes and tiny bilateral basal ganglia lacunar infarcts versus prominent perivascular spaces. No evidence of acute intracranial process. Visualized mastoids and sinuses are clear. IMPRESSION: 1. No acute intracranial abnormality 2. Mild white matter chronic ischemic changes with tiny bilateral basal ganglia lacunar infarct versus prominent perivascular spaces 3. Findings discussed with emergency department at 02:43 p.m., [place] Standard Time All CT scans at this facility use dose modulation, iterative reconstruction, and/or weight-based dosing when appropriate to reduce radiation dose to as low as reasonably achievable.
--- NOTE | 2016-11-24 15:07 | DIAGNOSTIC IMAGING REPORT ---
PROCEDURE: XR CERVICAL SPINE 2 OR 3 VIEW INDICATION: NECK TRAUMA/INJURY TECHNIQUE: Three views. COMPARISON: Cervical spine films 06/27/2016 FINDINGS: Normal alignment without fracture. Anterior C6-7 surgical fusion with complete bony fusion. Large spurs at C4-5 and C5-6. Osteopenia. Odontoid, lateral masses of C1 prevertebral soft tissues are normal. Soft tissue calcification between the C6 and C7 spinous processes suggestive of old soft tissue injury. IMPRESSION: 1. No acute changes 2. C6-7 surgical fusion 3. Degenerative changes
--- NOTE | 2016-11-24 15:20 | ED CLINICAL REPORT ---
Clinical Report - Physicians/Mid Levels Located Within [facility] [address] [place] [address] 11/24/2016 13:56 Patient: JORGE KEARNS Time Seen: 15:47 Bernardo 2016. Arrived- By ambulance. Historian- EMS personnel. HISTORY OF PRESENT ILLNESS Location of injuries- head and neck. Chief Complaint: FALL. The injury occurred just prior to arrival. Occurred at home. Fell. No fainting episodes. The patient complains of mild pain. The patient complains of neck pain. No loss of consciousness. Not dazed. (Patient was tends to get dressed today, he has a realtor behind her, K she falls that she does so frequently, however she fell forward today. Unsure if she struck her head. Reports some pain to her head and neck. Denies any LOC.). REVIEW OF SYSTEMS The patient complains of pain on weight bearing. No dizziness or chest pain. All systems otherwise negative, except as recorded above. PAST HISTORY Problems: Right leg droop . Diabetes Mellitus. Hypertension. TIA - Transient Ischemic Attack. Right leg droop . TIA - Transient Ischemic Attack [RuleOut]. Paresthesia [RuleOut]. Additional Surgeries: Back Surgery. Hysterectomy. Neck Surgery. Right elbow growth . Right elbow growth . Medications: Aspirin Oral (Tablet 325 mg) 1 tablet. HydrALAZINE HCl Oral (Tablet 25 mg) 1 tablet, HS. Hydrochlorothiazide Oral 25 mg, daily. Lantus SoloStar Subcutaneous 45 units daily . Lipitor Oral 20 mg, daily. Losartan Potassium Oral 100 mg, daily. Multivitamin Oral 1 tab daily . Nystatin 542881vcimf/gm powder BID . PARoxetine HCl Oral (Tablet 40 mg) 1 tablet, daily. Potassimin Oral 10mEq 1 daily . Tolterodine Tartrate ER Oral 4mg tab daily . Calcium + D Oral 1 daily. Carvedilol Oral (Tablet 12.5 mg) 1 tablet, BID. Clopidogrel Bisulfate Oral 75 mg, daily. Gabapentin Oral 300 mg, 2 in am, 1 in afternoon, 2 at HS . Allergies: Ciprofloxacin. (N/V) Metformin. NIFEdipine. Sulfa Antibiotics. (GI upset) Timolol. SOCIAL HISTORY No alcohol use or drug use. ADDITIONAL NOTES The nursing notes have been reviewed. PHYSICAL EXAM Vital Signs: 11/24/2016 13:57 BP: 138/78. HR: 70. RR: 14. O2 saturation: 100%. Temp: 98.8 F. Appearance: No backboard. Eyes: Pupils equal, round and reactive to light. ENT: No dental injury. Neck: Non-tender. No vertebral tenderness. LABS, X-RAYS, AND EKG EKG: EKG time: (1411). No acute process. No acute ischemia. Rate: 70. Normal P waves. Normal ALIYAH. Normal QRS complex. Normal axis. Normal ST and T waves and QT. The study has been interpreted contemporaneously. The study has been independently viewed by me. The EKG appears to be a good tracing. C-Spine X-rays: (MPRESSION: 1. No acute changes 2. C6-7 surgical fusion 3. Degenerative changes Electronically Final signed by:Oscar Hoffman MD 11/24/2016 3:07:50 PM). CT Head: (IMPRESSION: 1. No acute intracranial abnormality 2. Mild white matter chronic ischemic changes with tiny bilateral basal ganglia lacunar infarct versus prominent perivascular spaces 3. Findings discussed with emergency department at 02:43 p.m., Cassia Standard Time All CT scans at this facility use dose modulation, iterative reconstruction, and/or weight-based dosing when appropriate to reduce radiation dose to as low as reasonably achievable. Electronically Final signed by:Oscar Hoffman MD 11/24/2016 2:39:52 PM). 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 He denies any shortness of breath or chest parts of that. He denies any such after the event. In the ER CT of the head is unremarkable. Cervical spine x-ray with no signs of acute new injuries or changes. Patient feels all, desires to go home. Patient is stable. Symptoms better. Patient/family counseled. Disposition: Discharged. Condition: good. CLINICAL IMPRESSION Acute neck pain associated with cervical strain. Fall. INSTRUCTIONS Apply ice. OTC Medications: Take OTC medications according to label instructions. Available over the counter. Acetaminophen (available over the counter): take according to label instructions. Motrin (available over the counter): take according to label instructions. (Electronically signed by Flakita Gamble P.A.-C 11/24/2016 15:49)
--- NOTE | 2016-11-24 15:20 | ED ORDER SUMMARY ---
..... Patient: JORGE KEARNS OrderSheet [facility] VisitID: [id number] [place] [address] 71y, F Registration Date/Time: 11/24/2016 ORDER SHEET Weight: 79.8 kg (stated) Allergies: Ciprofloxacin, Metformin, NIFEdipine, Sulfa Antibiotics, Timolol GENERAL ORDERS: CT Head wo Cont Urgent (14:04 11/24/2016 EKoroleva P.A.-C) (Ack 14:18 Claire) (14:30 ROBINayne R.N.) EKG - ER Stat (14:04 11/24/2016 EKoroleva P.A.-C) (14:04 LNations ER Tech1) Cervical Spine 2 or 3V Urgent (14:05 11/24/2016 EKoroleva P.A.-C) (Ack 14:18 OHkeily) (14:30 TJayne R.N.) POC Glucose (15:13 11/24/2016 EKoroleva P.A.-C) (15:17 LNations ER Tech1) MEDICATION ORDERS: IV FLUIDS: ORDER SHEET NOTES: [Electronically signed by Flakita GambleAVale-Katy (15:49 11/24/2016)] [Electronically signed by Karol Singh R.N. (16:22 11/24/2016)] [Electronically locked/signed by Karol Singh R.N. (16:22 11/24/2016)]
--- NOTE | 2016-11-24 15:20 | ED NURSING NOTES ---
Clinical Report - Nurses [facility] [address] [place] [address] 11/24/2016 13:56 Patient: JORGE KEARNS TRIAGE Triage time 13:57. Acuity: LEVEL 3. Chief Complaint: FALL while attempting to get up (while getting dress). Alert. MALU COMA SCORE: [place] Coma Scale. (15). --14:01 Karol Singh R.N. 13:57 11/24/16. BP: 138/78. HR: 70. RR: 14. O2 saturation: 100%. Temp: 98.8 F. Pain level now 0/10. --14:01 Karol Singh R.N. Weight: 79.8 kg stated. Height/Length: 66 inches Per Patient. BMI: 28.4. --14:01 Karol Singh R.N. Medications Calcium + D Oral 1 daily. Carvedilol Oral (Tablet 12.5 mg) 1 tablet, BID. Clopidogrel Bisulfate Oral 75 mg, daily. Gabapentin Oral 300 mg, 2 in am, 1 in afternoon, 2 at HS . --13:59 Karol Singh R.N. HydrALAZINE HCl Oral (Tablet 25 mg) 1 tablet, HS. Hydrochlorothiazide Oral 25 mg, daily. Lantus SoloStar Subcutaneous 45 units daily . Lipitor Oral 20 mg, daily. Losartan Potassium Oral 100 mg, daily. Multivitamin Oral 1 tab daily . Nystatin 055173fphks/gm powder BID . PARoxetine HCl Oral (Tablet 40 mg) 1 tablet, daily. Potassimin Oral 10mEq 1 daily . Tolterodine Tartrate ER Oral 4mg tab daily . --13:59 Karol Singh R.N. Aspirin Oral (Tablet 325 mg) 1 tablet. --14:16 Karol Singh R.N. The following entry was struck by Karol Singh R.N., 14:19 (11/24/16) Reason - other. <<STRICKEN ENTRY-- OxyCODONE HCl Oral 5 mg, 4x a day as needed. --13:59 Karol Singh R.N. --END STRIKE>>. Allergies Ciprofloxacin. (N/V) Metformin. NIFEdipine. Sulfa Antibiotics. (GI upset) Timolol. --13:59 Karol Singh R.N. History Arrived by EMS. Historian: patient. Primary physician (Shelley). Location of injuries: head, right knee and left knee. This occurred today. Treatment PARTNER MANAGER: None. See EMS report. Trauma activation: Pre-hospital notification of patient arrival was received. PAST MEDICAL HX: Tetanus status: up-to-date. Immunizations: up-to-date. SOCIAL HX: No alcohol use or drug use. NUTRITIONAL RISK ASSESSMENT: The nutritional risk assessment revealed no deficiencies. FUNCTIONAL ASSESSMENT: Functional assessment: no impairments noted. LEARNING NEEDS ASSESSMENT: The learning needs assessment revealed no barriers. FALL RISK ASSESSMENT: Fall risk assessment completed. Risk factors identified include patient age greater than 65 years and history of fall. Fall interventions initiated. Patient placed on stretcher. Side rails up x2. Brakes on Bed in low position. Patient visible from nurses' station. Call light in reach of patient. Instructed not to get up without assistance. SKIN INTEGRITY ASSESSMENT: Skin integrity risk assessment completed. No skin integrity risk identified. --14: Karol Singh R.N. PROBLEMS: Right leg droop . Diabetes Mellitus. Hypertension. TIA - Transient Ischemic Attack. --13:59 Karol Singh R.N. ADDITIONAL SURGERIES: Back Surgery. Hysterectomy. Neck Surgery. Right elbow growth . --13:59 Karol Singh R.N. Interventions ID band on patient. To room. --14:01 Karol Singh R.N. PHYSICAL ASSESSMENT To room via stretcher. GENERAL / NEURO / PSYCH: Alert. Oriented X 4. HEENT: Pupils equal, round and reactive to light. RESPIRATORY: Respirations not labored. CVS: Pulses within normal limits. Capillary refill less than 2 seconds. GI / : Abdomen soft. EXTREMITIES: Neuro-vascular status intact to the extremity. SKIN: Skin is warm and dry. --14:02 Karol Singh R.N. NURSING PROGRESS NOTES Two patient identifiers checked. Call light placed in reach. Side rails up x 1. Bed placed in lowest position. Brakes of bed on. Patient ready for evaluation- chart flagged. --14:02 Karol Singh R.N. Patient gowned. --14:02 Karol Singh R.N. EKG time: (1411). EKG was ordered, performed by a tech and shown to the ED physician. --14:14 Sofie Malloy, ER Tech1 Patient transported to radiology and CT by stretcher with tech. (14:20). --14:30 Karol Singh R.N. 14:38 11/24/16. Patient returned from radiology by stretcher with tech. --14:38 Stephanie Farooq R.N. The patient is resting quietly. Patient waiting for CT results. --15:01 Karol Singh R.N. 14:58 11/24/16. BP: 130/68. HR: 69. RR: 14. O2 saturation: 100%. --15:01 Karol Singh R.N. ( bl. [id number]). --15:18 Sofie Malloy, ER Tech1 15:26 11/24/16. BP: 156/56. HR: 66. RR: 16. O2 saturation: 100%. --15:27 Karol Singh R.N. DISPOSITION / DISCHARGE Departure time: 1530. ( 15:26 11/24/16. BP: 156/56. HR: 66. RR: 16. O2 saturation: 100%. 15:27 Karol Singh R.N.). No learning barriers present. Discharge instructions provided and reviewed with the patient. Reviewed medication(s) information. Prescription(s) given to the patient. Patient verbalized understanding. Written instructions provided in Ghanaian. The patient was discharged home and accompanied by foundation stage teacher. She left the Emergency Department in a wheelchair and via private vehicle. Supervisory Aide driving. --16:21 Karol Singh R.N. Locked/Released at 11/24/2016 16:22 by Karol Sinhg R.N.
--- NOTE | 2016-11-24 15:20 | ED NURSING NOTES ---
Clinical Report - Nurses [facility] [address] [place] [address] 11/24/2016 13:56 Patient: JORGE KEARNS TRIAGE Triage time 13:57. Acuity: LEVEL 3. Chief Complaint: FALL while attempting to get up (while getting dress). Alert. MALU COMA SCORE: [place] Coma Scale. (15). --14:01 Karol Singh R.N. 13:57 11/24/16. BP: 138/78. HR: 70. RR: 14. O2 saturation: 100%. Temp: 98.8 F. Pain level now 0/10. --14:01 Karol Singh R.N. Weight: 79.8 kg stated. Height/Length: 66 inches Per Patient. BMI: 28.4. --14:01 Karol Singh R.N. Medications Calcium + D Oral 1 daily. Carvedilol Oral (Tablet 12.5 mg) 1 tablet, BID. Clopidogrel Bisulfate Oral 75 mg, daily. Gabapentin Oral 300 mg, 2 in am, 1 in afternoon, 2 at HS . --13:59 Karol Singh R.N. HydrALAZINE HCl Oral (Tablet 25 mg) 1 tablet, HS. Hydrochlorothiazide Oral 25 mg, daily. Lantus SoloStar Subcutaneous 45 units daily . Lipitor Oral 20 mg, daily. Losartan Potassium Oral 100 mg, daily. Multivitamin Oral 1 tab daily . Nystatin 088059hmrfg/gm powder BID . PARoxetine HCl Oral (Tablet 40 mg) 1 tablet, daily. Potassimin Oral 10mEq 1 daily . Tolterodine Tartrate ER Oral 4mg tab daily . --13:59 Karol Singh R.N. Aspirin Oral (Tablet 325 mg) 1 tablet. --14:16 Karol Singh R.N. The following entry was struck by Karol Singh R.N., 14:19 (11/24/16) Reason - other. <<STRICKEN ENTRY-- OxyCODONE HCl Oral 5 mg, 4x a day as needed. --13:59 Karol Singh R.N. --END STRIKE>>. Allergies Ciprofloxacin. (N/V) Metformin. NIFEdipine. Sulfa Antibiotics. (GI upset) Timolol. --13:59 Karol Singh R.N. History Arrived by EMS. Historian: patient. Primary physician (Shelley). Location of injuries: head, right knee and left knee. This occurred today. Treatment CREDIT ADMINISTRATION MANAGER: None. See EMS report. Trauma activation: Pre-hospital notification of patient arrival was received. PAST MEDICAL HX: Tetanus status: up-to-date. Immunizations: up-to-date. SOCIAL HX: No alcohol use or drug use. NUTRITIONAL RISK ASSESSMENT: The nutritional risk assessment revealed no deficiencies. FUNCTIONAL ASSESSMENT: Functional assessment: no impairments noted. LEARNING NEEDS ASSESSMENT: The learning needs assessment revealed no barriers. FALL RISK ASSESSMENT: Fall risk assessment completed. Risk factors identified include patient age greater than 65 years and history of fall. Fall interventions initiated. Patient placed on stretcher. Side rails up x2. Brakes on Bed in low position. Patient visible from nurses' station. Call light in reach of patient. Instructed not to get up without assistance. SKIN INTEGRITY ASSESSMENT: Skin integrity risk assessment completed. No skin integrity risk identified. --14: Karol Singh R.N. PROBLEMS: Right leg droop . Diabetes Mellitus. Hypertension. TIA - Transient Ischemic Attack. --13:59 Karol Singh R.N. ADDITIONAL SURGERIES: Back Surgery. Hysterectomy. Neck Surgery. Right elbow growth . --13:59 Karol Singh R.N. Interventions ID band on patient. To room. --14:01 Karol Singh R.N. PHYSICAL ASSESSMENT To room via stretcher. GENERAL / NEURO / PSYCH: Alert. Oriented X 4. HEENT: Pupils equal, round and reactive to light. RESPIRATORY: Respirations not labored. CVS: Pulses within normal limits. Capillary refill less than 2 seconds. GI / : Abdomen soft. EXTREMITIES: Neuro-vascular status intact to the extremity. SKIN: Skin is warm and dry. --14:02 Karol Singh R.N. NURSING PROGRESS NOTES Two patient identifiers checked. Call light placed in reach. Side rails up x 1. Bed placed in lowest position. Brakes of bed on. Patient ready for evaluation- chart flagged. --14:02 Karol Singh R.N. Patient gowned. --14:02 Karol Singh R.N. EKG time: (1411). EKG was ordered, performed by a tech and shown to the ED physician. --14:14 Sofie Malloy, ER Tech1 Patient transported to radiology and CT by stretcher with tech. (14:20). --14:30 Karol Singh R.N. 14:38 11/24/16. Patient returned from radiology by stretcher with tech. --14:38 Stephanie Farooq R.N. The patient is resting quietly. Patient waiting for CT results. --15:01 Karol Singh R.N. 14:58 11/24/16. BP: 130/68. HR: 69. RR: 14. O2 saturation: 100%. --15:01 Karol Singh R.N. ( bl. [id number]). --15:18 Sofie Malloy, ER Tech1 15:26 11/24/16. BP: 156/56. HR: 66. RR: 16. O2 saturation: 100%. --15:27 Karol Singh R.N. DISPOSITION / DISCHARGE Departure time: 1530. ( 15:26 11/24/16. BP: 156/56. HR: 66. RR: 16. O2 saturation: 100%. 15:27 Karol Singh R.N.). No learning barriers present. Discharge instructions provided and reviewed with the patient. Reviewed medication(s) information. Prescription(s) given to the patient. Patient verbalized understanding. Written instructions provided in Polish. The patient was discharged home and accompanied by radiological engineer. She left the Emergency Department in a wheelchair and via private vehicle. Fuse Assembler driving. --16:21 Karol Singh R.N. Locked/Released at 11/24/2016 16:22 by Karol Singh R.N.
--- NOTE | 2016-11-24 15:20 | ED ORDER SUMMARY ---
..... Patient: JORGE KEARNS OrderSheet [facility] VisitID: [id number] [place] [address] 71y, F Registration Date/Time: 11/24/2016 ORDER SHEET Weight: 79.8 kg (stated) Allergies: Ciprofloxacin, Metformin, NIFEdipine, Sulfa Antibiotics, Timolol GENERAL ORDERS: CT Head wo Cont Urgent (14:04 11/24/2016 EKoroleva P.A.-C) (Ack 14:18 Claire) (14:30 ROBINayne R.N.) EKG - ER Stat (14:04 11/24/2016 EKoroleva P.A.-C) (14:04 LNations ER Tech1) Cervical Spine 2 or 3V Urgent (14:05 11/24/2016 EKoroleva P.A.-C) (Ack 14:18 OHkeily) (14:30 TJayne R.N.) POC Glucose (15:13 11/24/2016 EKoroleva P.A.-C) (15:17 LNations ER Tech1) MEDICATION ORDERS: IV FLUIDS: ORDER SHEET NOTES: [Electronically signed by Flakita GambleAVale-Katy (15:49 11/24/2016)] [Electronically signed by Karol Singh R.N. (16:22 11/24/2016)] [Electronically locked/signed by Karol Singh R.N. (16:22 11/24/2016)]
--- NOTE | 2016-11-24 16:23 | ED MAR SUMMARY ---
..... Medication Administration Record [facility] [address] [place], [place] [id number] Patient: JORGE KEARNS Visit ID: [id number] 71y, F Weight: 79.8 kg Height/Length: 66 in BMI: 28.4 ALLERGIES: Ciprofloxacin, Metformin, NIFEdipine, Sulfa Antibiotics, Timolol
--- NOTE | 2016-11-24 16:23 | ED MED RECONCILIATION SUMMARY ---
Patient: JORGE KEARNS Medication Reconciliation Report [facility] VisitID: [id number] [place] [address] 71y, F Registration Date/Time: 11/24/2016 Weight: 79.8 kg Height/Length: 66 in. BMI: 28.4 ALLERGIES: Ciprofloxacin, Metformin, NIFEdipine, Sulfa Antibiotics, Timolol The patient's Home Medications are listed below: THE FOLLOWING MEDICATIONS NEED TO BE RECONCILED: Aspirin Oral (325 mg) 1 tablet Calcium + D Oral 1 daily Carvedilol Oral (12.5 mg) 1 tablet, BID Clopidogrel Bisulfate Oral 75 mg, daily Gabapentin Oral 300 mg, 2 in am, 1 in afternoon, 2 at HS HydrALAZINE HCl Oral (25 mg) 1 tablet, HS Hydrochlorothiazide Oral 25 mg, daily Lantus SoloStar Subcutaneous 45 units daily Lipitor Oral 20 mg, daily Losartan Potassium Oral 100 mg, daily Multivitamin Oral 1 tab daily Nystatin 287800dujcb/gm powder BID PARoxetine HCl Oral (40 mg) 1 tablet, daily Potassimin Oral 10mEq 1 daily Tolterodine Tartrate ER Oral 4mg tab daily The source(s) of the original Home Medication information: Not obtained. The following Medications were given to the patient in the Emergency Department: None. The following Medications were prescribed to the patient: Take OTC medications according to label instructions. Available over the counter. -- Flakita Gamble, P.A.-C Acetaminophen (available over the counter): take according to label instructions. -- Flakita Gamble, P.A.-C Motrin (available over the counter): take according to label instructions. -- Flakita Gamble, P.A.-C
--- NOTE | 2016-11-24 16:23 | ED MED RECONCILIATION SUMMARY ---
Patient: JORGE KEARNS Medication Reconciliation Report [facility] VisitID: [id number] [place] [address] 71y, F Registration Date/Time: 11/24/2016 Weight: 79.8 kg Height/Length: 66 in. BMI: 28.4 ALLERGIES: Ciprofloxacin, Metformin, NIFEdipine, Sulfa Antibiotics, Timolol The patient's Home Medications are listed below: THE FOLLOWING MEDICATIONS NEED TO BE RECONCILED: Aspirin Oral (325 mg) 1 tablet Calcium + D Oral 1 daily Carvedilol Oral (12.5 mg) 1 tablet, BID Clopidogrel Bisulfate Oral 75 mg, daily Gabapentin Oral 300 mg, 2 in am, 1 in afternoon, 2 at HS HydrALAZINE HCl Oral (25 mg) 1 tablet, HS Hydrochlorothiazide Oral 25 mg, daily Lantus SoloStar Subcutaneous 45 units daily Lipitor Oral 20 mg, daily Losartan Potassium Oral 100 mg, daily Multivitamin Oral 1 tab daily Nystatin 115893ottok/gm powder BID PARoxetine HCl Oral (40 mg) 1 tablet, daily Potassimin Oral 10mEq 1 daily Tolterodine Tartrate ER Oral 4mg tab daily The source(s) of the original Home Medication information: Not obtained. The following Medications were given to the patient in the Emergency Department: None. The following Medications were prescribed to the patient: Take OTC medications according to label instructions. Available over the counter. -- Flakita Gamble, P.A.-C Acetaminophen (available over the counter): take according to label instructions. -- Flakita Gamble, P.A.-C Motrin (available over the counter): take according to label instructions. -- Flakita Gamble, P.A.-C
--- NOTE | 2016-11-24 16:23 | ED MAR SUMMARY ---
..... Medication Administration Record [facility] [address] [place], [place] [id number] Patient: JORGE KEARNS Visit ID: [id number] 71y, F Weight: 79.8 kg Height/Length: 66 in BMI: 28.4 ALLERGIES: Ciprofloxacin, Metformin, NIFEdipine, Sulfa Antibiotics, Timolol
--- NOTE | 2016-11-24 16:23 | ED DISCHARGE INSTRUCTIONS ---
Patient: JORGE KEARNS General Instructions [facility] VisitID: [id number] [place] [address] 71y, F Registration Date/Time: 11/24/2016 Acute neck pain associated with cervical strain. Fall. INSTRUCTIONS Apply ice. OTC Medications: Take OTC medications according to label instructions. Available over the counter. Acetaminophen (available over the counter): take according to label instructions. Motrin (available over the counter): take according to label instructions. ADDITIONAL INFORMATION Mechanical Fall You have had a fall today. It appears that the cause is mechanical. That means that you slipped, tripped or lost your balance. If your fall had been due to fainting or a seizure, further tests would be required. Home Care: Rest today and resume your normal activities when you are feeling back to normal. If you were injured during the fall, follow the advice from your doctor regarding care of your injury. You may use acetaminophen (Tylenol) or ibuprofen (Motrin, Advil) to control pain, unless another pain medicine was prescribed. [NOTE: If you have chronic liver or kidney disease or ever had a stomach ulcer or GI bleeding, talk with your doctor before using these medicines.] Fall Prevention: Was there anything that caused your fall that can be fixed, removed, or replaced? Make your home safe by keeping walkways clear of objects you may trip over. Use non-slip pads under rugs. Do not walk in poorly lit areas. Do not stand on chairs or wobbly ladders. Use caution when reaching overhead or looking upward. This position can cause a loss of balance. Be sure your shoes fit properly, have non-slip bottoms and are in good condition. Be cautious when going up and down curbs, and walking on uneven sidewalks. If your balance is poor, consider using a cane or walker. Stay as active as you can. Balance, flexibility, strength, and endurance all come from exercise. They all play a role in preventing falls. Follow Up with your doctor or as advised by our staff. Get Prompt Medical Attention if any of the following occur: Repeated mechanical falls, or unexplained falls Dizziness, fainting or seizure Severe headache Chest pain or shortness of breath Palpitations (very rapid or very slow or irregular heartbeat) Blood in vomit, stools (black or red color) Weakness of an arm or leg or one side of the face Difficulty with speech or vision Neck Sprain Or Strain A sudden force that causes turning or bending of the neck (such as in a car accident) can stretch or tear muscles (strain) and ligaments (sprain) and cause neck pain. Sometimes neck pain occurs after a simple awkward movement. In either case, muscle spasm is commonly present and contributes to the pain. Unless you had a forceful physical injury (for example, a car accident or fall), X-rays are usually not ordered for the initial evaluation of neck pain. If pain continues and dose not respond to medical treatment, X-rays and other tests may be performed at a later time. Home care The following guidelines will help you care for your injury at home: You may feel more soreness and spasm the first few days after the injury. Reduce your activity level until symptoms begin to improve. When lying down, use a comfortable pillow that supports the head and keeps the spine in a neutral position. The position of the head should not be tilted forward or backward. Use ice packs (ice in a plastic bag, wrapped in a towel) to treat acute pain. Apply for 20 minutes every 24 hours during the first two days. Then, begin local heat (hot shower, hot bath or heating pad) andmassageto reduce muscle spasm. Some patients feel best alternating hot and cold treatments, or just staying with one method only. Do what feels the best to you and gives the most relief. You may use acetaminophen or ibuprofen to control pain, unless another pain medicine was prescribed.If you have chronic liver or kidney disease or ever had a stomach ulcer or GI bleeding, talk with your doctor before using these medicines. Follow-up care Follow up with your physician or this facility if your symptoms do not show signs of improvement. Physical therapy may be needed. If you had X-rays today, they didnt show any broken bones, breaks, or fractures. Sometimes fractures dont show up on the first X-ray. Bruises and sprains can sometimes hurt as much as a fracture. These injuries can take time to heal completely. If your symptoms dont improve or they get worse, talk with your doctor. You may need a repeat X-ray. When to seek medical care Get prompt medical attention if any of the following occur: Pain becomes worse or spreads into your arms Weakness or numbness in one or both arms You have been given the following additional information: Fall, Mechanical Neck Sprain/Strain (Electronically signed by Flakita Gamble P.A.-C 11/24/2016 15:49)
== END 2016-11-24 15:30 | disposition home or self-care (01) ==
LOC: ED SRH 13:54
DX: S16.1XXA Strain of muscle, fascia and tendon at neck level, initial encounter (principal); W18.39XA Other fall on same level, initial encounter; Y93.9 Activity, unspecified; Y92.019 Unspecified place in single-family (private) house as the place of occurrence of the external cause; Y99.9 Unspecified external cause status; I10 Essential (primary) hypertension; E11.9 Type 2 diabetes mellitus without complications; Z79.4 Long term (current) use of insulin; Z79.02 Long term (current) use of antithrombotics/antiplatelets; Z79.82 Long term (current) use of aspirin
CPT/HCPCS: 90098